=== PATIENT | male | born 1940 | race Caucasian/White ===

== ENCOUNTER 2016-05-19 01:29 | Emergency (ER) | payer OTHER, BC ==
[~2016-05-19] VITALS: Ht 175.3 cm; Wt 82.6 kg
[~2016-05-19 01:29] MED LIST: ACETAMINOPHEN325 M1 PO; ALEVE220 MG PO; ALPRAZOLAM0.25 MG PO; ALPRAZOLAM0.5 MG PO; ALTACE10 MG PO; AMLODIPINE BESY10 MG PO; ANTIVERT25 MG PO; ASPIRIN E.C.81 M1 PO; AVELOX400 MG PO; Antivert PO; CALCIUM 600 MG1 EACH PO; CILOSTAZOL100 MG PO; Cordarone, Pacerone PO; DILAUDID2 MG PO; ENBREL50 MG/ML PO; FOLIC ACID; FOLIC ACID1 MG PO; Folvite PO; GLUCOPHAGE XR,500 MG PO; GLUCOPHAGE1000 MG PO; GLUCOPHAGE500 MG PO; HABITROL,NICODE21 MG TD; HEPARIN SO5000 UNITS SC; HYDROXYCHLOROQ200 MG PO; ICaps Multivitamin F PO; LEVAQUIN500 MG PO; LOPRESSOR12.5 MG PO; LOPRESSOR25 MG PO; Lopressor PO; METFORMIN HCL500 MG PO; METHOTREXATE2.5 MG PO; METOPROLOL SUCC25 MG PO; NEXIUM40 MG PO; NIASPAN,SLO-NI500 MG PO; NIASPAN500 MG PO; NORVASC5 MG PO; Norvasc PO; Oyst-Cal D, Oscal W/ PO; PERCOCET 5/31 TABLET PO; PLAVIX75 MG PO; PRAVACHOL40 MG PO; PRAVASTATIN SOD40 MG PO; PREDNISONE5 MG PO; PROTONIX40 MG PO; RAMIPRIL10 MG PO; THIAMINE,VITAM100 MG PO; TRENTAL400 MG PO; TRENtal PO; TYLENOL WITH C1 EACH PO; Trental PO; VALIUM2 MG PO; VALIUM5 MG PO; VITAMIN B-12250 MCG PO; VITAMIN B12; VITAMIN B12-FO1 EACH PO; VITAMIN D31000 UNI2 PO; Vitamin B-12 PO; Xanax PO; Zocor PO; [UNRECOGNIZED DRUG - OTHER] PO; [UNRECOGNIZED DRUG - OTHER] PO; predniSONE PO
[2016-05-19 02:20] LABS: HEMATOCRIT 35.1 % (38.0-50.0); MCHC 32.2 G/DL (30.0-36.0); MCV 86.9 FL (86-99); MEAN PLAT.VOLUME 10.9 uM^3 (9.0-12.4); PLATELET COUNT 218 K/uL (156-360); RBC DIS.WIDTH-CV 18.3 % (11.8-14.6); RBC DIS.WIDTH-SD 57.4 % (39-53); RED BLOOD COUNT 4.04 M/uL (4.00-5.50); WHITE BLOOD COUNT 8.7 K/uL (4.1-10.2)
[2016-05-19 02:34] LABS: CHLORIDE 105 mEq/L (99-109); POTASSIUM 3.4 mEq/L (3.7-5.4); SODIUM 139 mEq/L (136-147)
[2016-05-19 02:35] LABS: GLUCOSE 167 mg/dL (70-99)
[2016-05-19 02:37] LABS: ANION GAP 18 MEQ/L (2-14)
[2016-05-19 02:40] LABS: GFR ESTIMATE (CALCULATED) > 59 mL/min/; UREA NITROGEN (BUN) 11 mg/dL (9-23)
[2016-05-19 02:41] LABS: TROP-I INTERPRETATION NEGATIVE; TROPONIN-I < 0.01 ng/mL (0.0-0.30)
[2016-05-19 04:35] LABS: TROP-I INTERPRETATION NEGATIVE; TROPONIN-I 0.01 ng/mL (0.0-0.30)
[2016-05-19 05:10] VITALS: BP 135/54
== END 2016-05-19 05:10 | disposition home or self-care (01) ==
LOC: EME → EDBD 01:29 → EME 05:10
PROVIDERS: Emergency Medicine
DX: R07.9 Chest pain, unspecified (principal); F43.9 Reaction to severe stress, unspecified; I10 Essential (primary) hypertension; E78.5 Hyperlipidemia, unspecified; I25.2 Old myocardial infarction; Z95.1 Presence of aortocoronary bypass graft; Z95.5 Presence of coronary angioplasty implant and graft; Z86.73 Personal history of transient ischemic attack (TIA), and cerebral infarction without residual deficits; Z88.0 Allergy status to penicillin
CPT/HCPCS: 71010; 80048; 84484; 85027; 93005; 99281; 99284; J2060; J7040

== ENCOUNTER → 2016-11-26 | Outpatient (CLI) | payer MEDICARE, BC | END | disposition home or self-care (01) | LOC: CDC 10:26 | DX: R94.31 Abnormal electrocardiogram [ECG] [EKG] (principal) | CPT/HCPCS: 93000 ==

== ENCOUNTER 2016-12-18 13:54 | Emergency (ER) | payer OTHER, BC ==
[2016-12-18 14:08] LABS: BASOPHIL COUNT 0.1 K/uL (0-0.1); EOSINOPHIL (%) 3.8 % (0-5); EOSINOPHIL COUNT 0.3 K/uL (0-0.3); IMMATURE GRANULOCYTE (%) 0.3 % (0.0-0.7); INSTRUMENT ABS NEUTROPHIL CT 4.8 K/uL; LYMPHOCYTE COUNT 1.2 K/uL (1.0-2.8); MCH 28.6 PG (29.0-34.0); MCHC 32.9 G/DL (30.0-36.0); MCV 86.7 FL (86-99); MEAN PLAT.VOLUME 11.8 uM^3 (9.0-12.4); MONOCYTE (%) 8.4 % (3-12); MONOCYTE COUNT 0.6 K/uL (0-0.8); NEUTROPHIL (%) 69.1 % (45-76); NEUTROPHIL COUNT 4.8 K/uL (1.8-6.4); PLATELET COUNT 235 K/uL (156-360); RBC DIS.WIDTH-CV 17.8 % (11.8-14.6); RED BLOOD COUNT 3.92 M/uL (4.00-5.50); WHITE BLOOD COUNT 6.9 K/uL (4.1-10.2)
[2016-12-18 14:19] LABS: AMYLASE 75 IU/L (1-118); CHLORIDE 105 mEq/L (99-109); POTASSIUM 4.1 mEq/L (3.7-5.4); SODIUM 137 mEq/L (136-147)
[2016-12-18 14:21] LABS: GLUCOSE 144 mg/dL (70-99)
[2016-12-18 14:22] LABS: ANION GAP 11 MEQ/L (2-14)
[2016-12-18 14:24] LABS: SERUM ETHYL ALCOHOL < 10 mg/dL
[2016-12-18 14:25] LABS: GFR ESTIMATE (CALCULATED) > 59 mL/min/
[2016-12-18 14:26] LABS: UREA NITROGEN (BUN) 15 mg/dL (9-23)
[2016-12-18 14:28] LABS: LIPASE 15 U/L (1.0-51.0)
[2016-12-18 16:44] LABS: ADD MIUA? NO; BILIRUBIN NEGATIVE; BLOOD NEGATIVE; COLOR STRAW ((YELLOW)); GLUCOSE (STRIP) NEGATIVE; KETONES NEGATIVE; LEUKOCYTES NEGATIVE; NITRITE NEGATIVE; PROTEIN (STRIP) NEGATIVE; SPECIFIC GRAVITY 1.014 (1.000-1.030); UCUL ADDED? NO; UROBILINOGEN 0.2 MG/DL (0.2-1.0)
[2016-12-18 16:55] LABS: ADD MEDTOX COMMENT Y; AMPHETAMINE NEGATIVE (500 ng/mL); BARBITURATES NEGATIVE (200 ng/mL); BENZODIAZEPINES PRESUMPTIVE POSITIVE (150 ng/mL); COCAINE NEGATIVE (150 ng/mL); INTERNAL CONTROLS VALID? YES; METHADONE NEGATIVE (200 ng/mL); METHAMPHETAMINE NEGATIVE (500 ng/mL); OPIATES (MORPHINE) PRESUMPTIVE POSITIVE (100 ng/mL); OXYCODONE NEGATIVE (100 ng/mL); PHENCYCLIDINE NEGATIVE (25 ng/mL); PROPOXYPHENE NEGATIVE (300 ng/mL); THC CANNABINOIDS NEGATIVE (50 ng/mL); TRICYCLIC ANTIDEPRESSANTS NEGATIVE (300 ng/mL)
[2016-12-18 17:37] LABS: BENZODIAZEPINES QUANT VALUE 0 NG/ML; BENZODIAZEPINES, URINE SCREEN Negative (200 ng/mL)
== END 2016-12-18 17:50 | disposition home or self-care (01) ==
LOC: TRA 13:54
PROVIDERS: Emergency Medicine
DX: M54.5 Low back pain (principal); M54.2 Cervicalgia; R42 Dizziness and giddiness; V49.40XA Driver injured in collision with unspecified motor vehicles in traffic accident, initial encounter; I25.2 Old myocardial infarction; Z79.82 Long term (current) use of aspirin; Z96.641 Presence of right artificial hip joint; Z95.5 Presence of coronary angioplasty implant and graft
CPT/HCPCS: 70450; 71260; 72125; 72132; 74177; 80048; 81003; 82150; 83690; 84999; 85025; 86900; 86901; 93005; 99281; 99285; G0480; J2270

== ENCOUNTER 2017-04-18 14:29 | Observation (INO) | payer OTHER, BC ==
[~2017-04-18] VITALS: Ht 175.3 cm; Wt 78.4 kg
[~2017-04-18 14:29] MED LIST changes: +AMARYL1 MG PO; +NIACIN500 M1 PO; +PROAIR HFA8.5 GM IH; +TOPROL XL50 MG PO; -VITAMIN B-12250 MCG PO
[2017-04-18 15:00] LABS: HEMATOCRIT 34.1 % (38.0-50.0); MCH 28.6 PG (29.0-34.0); MCHC 32.6 G/DL (30.0-36.0); MCV 87.9 FL (86-99); MEAN PLAT.VOLUME 10.8 uM^3 (9.0-12.4); PLATELET COUNT 225 K/uL (156-360); RBC DIS.WIDTH-CV 18.5 % (11.8-14.6); RBC DIS.WIDTH-SD 59.2 % (39-53); RED BLOOD COUNT 3.88 M/uL (4.00-5.50)
[2017-04-18 15:09] LABS: CHLORIDE 104 mEq/L (99-109); POTASSIUM 4.7 mEq/L (3.7-5.4); SODIUM 141 mEq/L (136-147)
[2017-04-18 15:10] LABS: INTER. NORMALIZED RATIO 1.1; PROTHROMBIN TIME 12.8 SEC (10.2-12.9)
[2017-04-18 15:11] LABS: GLUCOSE 113 mg/dL (70-99)
[2017-04-18 15:12] LABS: ANION GAP 11 MEQ/L (2-14); PTT 28.5 SEC (25-37)
[2017-04-18 15:13] LABS: TOTAL BILIRUBIN 0.4 mg/dL (0.0-1.0)
[2017-04-18 15:15] LABS: ALKALINE PHOSPHATASE 62 IU/L (3-129); GFR ESTIMATE (CALCULATED) > 59 mL/min/
[2017-04-18 15:16] LABS: UREA NITROGEN (BUN) 14 mg/dL (9-23)
[2017-04-18 15:20] LABS: TROP-I INTERPRETATION NEGATIVE; TROPONIN-I < 0.01 ng/mL (0.0-0.30)
[2017-04-18 20:59] LABS: TROP-I INTERPRETATION NEGATIVE; TROPONIN-I < 0.01 ng/mL (0.0-0.30)
[2017-04-18] MEDS ORDERED: LOPRESSOR25 MG PO (22:05)
[2017-04-18] MEDS ORDERED: RAMIPRIL10 MG PO (22:08)
[2017-04-18] MEDS ORDERED: VITAMIN B12 100MCG PO (22:22)
[2017-04-19 00:24] VITALS: BP 142/69
[2017-04-19 03:03] LABS: TROP-I INTERPRETATION NEGATIVE; TROPONIN-I < 0.01 ng/mL (0.0-0.30)
[2017-04-19 03:55] VITALS: BP 106/57
[2017-04-19 05:01] LABS: HDL CHOLESTEROL 38 MG/DL (Desirable>=40); LDL CHOLESTEROL 40 mg/dL (Desirable<100); NON-HDL CHOLESTEROL 60 mg/dL (Desirable<160); TOTAL CHOLESTEROL 98 mg/dL (Desirable<200); TRIGLYCERIDES 101 MG/DL (Normal: <150)
[2017-04-19 09:16] LABS: TROP-I INTERPRETATION NEGATIVE; TROPONIN-I < 0.01 ng/mL (0.0-0.30)
[2017-04-19 10:26] VITALS: BP 125/59
[2017-04-19 11:36] VITALS: BP 124/72
[2017-04-19] MEDS ORDERED: NITROSTAT0.4 MG SL (12:17)
[2017-04-19 12:30] LABS: POINT-OF-CARE METER ID UU14162513
== END 2017-04-19 14:31 | disposition home or self-care (01) ==
LOC: EME 14:29 → EDOF 19:45 → ENRESERV 19:48 → CANRESERV 19:56 → ENRESERV 19:56 → 5WEST 04-19 → ENPENDDIS 04-19 12:22 → 5WEST 04-19 14:31
PROVIDERS: Hospitalist; Physician Assistant
DX: R07.9 Chest pain, unspecified (principal); E11.51 Type 2 diabetes mellitus with diabetic peripheral angiopathy without gangrene; I10 Essential (primary) hypertension; I25.10 Atherosclerotic heart disease of native coronary artery without angina pectoris; I71.4 Abdominal aortic aneurysm, without rupture; M06.9 Rheumatoid arthritis, unspecified; Z95.1 Presence of aortocoronary bypass graft; Z95.5 Presence of coronary angioplasty implant and graft; I25.2 Old myocardial infarction; I65.29 Occlusion and stenosis of unspecified carotid artery; H35.30 Unspecified macular degeneration; J44.9 Chronic obstructive pulmonary disease, unspecified; Z86.73 Personal history of transient ischemic attack (TIA), and cerebral infarction without residual deficits; M81.0 Age-related osteoporosis without current pathological fracture; R42 Dizziness and giddiness; I47.1 Supraventricular tachycardia; E78.5 Hyperlipidemia, unspecified; F17.210 Nicotine dependence, cigarettes, uncomplicated; Z85.828 Personal history of other malignant neoplasm of skin; Z82.49 Family history of ischemic heart disease and other diseases of the circulatory system; Z80.0 Family history of malignant neoplasm of digestive organs; Z88.0 Allergy status to penicillin; Z79.84 Long term (current) use of oral hypoglycemic drugs; Z79.02 Long term (current) use of antithrombotics/antiplatelets
CPT/HCPCS: 71020; 80053; 80061; 82948; 84484; 85027; 85610; 85730; 93005; 99281; 99284; G0378; J1650; J8610

== ENCOUNTER 2017-05-08 09:35 | Day surgery (SDC) | payer OTHER, BC ==
[~2017-05-08] VITALS: Ht 175.3 cm; Wt 78.0 kg
[~2017-05-08 09:35] MED LIST changes: +ALEVE220 M2 PO; +ASPIRIN81 M2 PO; +NITROSTAT0.4 MG SL; +VITAMIN B12 100MCG PO
[2017-05-08] MEDS ORDERED: VITAMIN E400 UNIT PO (10:46)
[2017-05-08] MEDS ORDERED: VITAMIN D31000 UNI2 PO (10:46)
[2017-05-08] MEDS ORDERED: CALCIUM600 M1 PO (10:48)
[2017-05-08 10:59] LABS: POINT-OF-CARE METER ID UU13113696
== END 2017-05-08 21:40 | disposition home or self-care (01) ==
LOC: CATH 09:35
PROVIDERS: Internal Medicine Cardiovascular Disease
DX: I25.119 Atherosclerotic heart disease of native coronary artery with unspecified angina pectoris (principal); I47.1 Supraventricular tachycardia; I47.2 Ventricular tachycardia; I10 Essential (primary) hypertension; I70.213 Atherosclerosis of native arteries of extremities with intermittent claudication, bilateral legs; J44.9 Chronic obstructive pulmonary disease, unspecified; E78.5 Hyperlipidemia, unspecified; E11.9 Type 2 diabetes mellitus without complications; I25.2 Old myocardial infarction; Z95.1 Presence of aortocoronary bypass graft; Z79.84 Long term (current) use of oral hypoglycemic drugs; Z95.5 Presence of coronary angioplasty implant and graft; Z79.82 Long term (current) use of aspirin
CPT/HCPCS: 82948; 85347; C1769; C1887; C1894; J1644; J2250; J3010

== ENCOUNTER → 2017-05-23 | Outpatient (CLI) | payer MEDICARE, BC ==
[~2017-05-23] MED LIST changes: +CALCIUM600 M1 PO; +VITAMIN E400 UNIT PO
== END | disposition home or self-care (01) ==
LOC: CDC 08:29
DX: Z01.810 Encounter for preprocedural cardiovascular examination (principal); R94.31 Abnormal electrocardiogram [ECG] [EKG]
CPT/HCPCS: 93000

== ENCOUNTER 2017-08-12 12:14 | Emergency (ER) | payer OTHER, BC ==
[~2017-08-12] VITALS: Ht 175.3 cm; Wt 77.2 kg
[2017-08-12] MEDS ORDERED: TRAMADOL HCL50 MG PO (15:16)
[2017-08-12] MEDS ORDERED: VOLTAREN 1% GE100 GM TP (15:16)
[2017-08-12] MEDS ORDERED: LIDODERM 5% P1 PATCH TD (15:16)
[2017-08-12 15:28] VITALS: BP 168/82
== END 2017-08-12 15:32 | disposition home or self-care (01) ==
LOC: EME 12:14
DX: S46.911A Strain of unspecified muscle, fascia and tendon at shoulder and upper arm level, right arm, initial encounter (principal); M25.521 Pain in right elbow; V48.0XXA Car driver injured in noncollision transport accident in nontraffic accident, initial encounter; Y92.411 Interstate highway as the place of occurrence of the external cause; E11.9 Type 2 diabetes mellitus without complications; Z79.84 Long term (current) use of oral hypoglycemic drugs; E78.5 Hyperlipidemia, unspecified; I25.2 Old myocardial infarction; Z95.1 Presence of aortocoronary bypass graft; Z86.73 Personal history of transient ischemic attack (TIA), and cerebral infarction without residual deficits; M06.9 Rheumatoid arthritis, unspecified; I50.9 Heart failure, unspecified; Z79.82 Long term (current) use of aspirin; Z88.0 Allergy status to penicillin; F17.200 Nicotine dependence, unspecified, uncomplicated; Z71.6 Tobacco abuse counseling
CPT/HCPCS: 73080; 99281; 99284

== ENCOUNTER 2017-10-28 15:04 | Observation (INO) | payer OTHER, BC ==
[~2017-10-28] VITALS: Ht 175.3 cm; Wt 74.0 kg
[~2017-10-28 15:04] MED LIST changes: +LIDODERM 5% P1 PATCH TD; +TRAMADOL HCL50 MG PO; +VOLTAREN 1% GE100 GM TP
[2017-10-28 17:06] LABS: BASOPHIL (%) 1.1 % (0-1); BASOPHIL COUNT 0.1 K/uL (0-0.1); EOSINOPHIL (%) 2.9 % (0-5); EOSINOPHIL COUNT 0.2 K/uL (0-0.3); HEMATOCRIT 34.8 % (38.0-50.0); HEMOGLOBIN 11.2 G/DL (12.5-16.6); IMMATURE GRANULOCYTE (%) 0.1 % (0.0-0.7); LYMPHOCYTE (%) 14.7 % (15-42); LYMPHOCYTE COUNT 1.2 K/uL (1.0-2.8); MCH 28.3 PG (29.0-34.0); MCHC 32.2 G/DL (30.0-36.0); MCV 87.9 FL (86-99); MONOCYTE (%) 7.2 % (3-12); MONOCYTE COUNT 0.6 K/uL (0-0.8); NEUTROPHIL COUNT 5.8 K/uL (1.8-6.4); PLATELET COUNT 249 K/uL (156-360); RBC DIS.WIDTH-CV 18.4 % (11.8-14.6); RBC DIS.WIDTH-SD 58.8 % (39-53); RED BLOOD COUNT 3.96 M/uL (4.00-5.50); WHITE BLOOD COUNT 7.9 K/uL (4.1-10.2)
[2017-10-28 17:16] LABS: CHLORIDE 106 mEq/L (99-109); POTASSIUM 4.7 mEq/L (3.7-5.4); SODIUM 142 mEq/L (136-147)
[2017-10-28 17:18] LABS: GLUCOSE 152 mg/dL (70-99)
[2017-10-28 17:22] LABS: CREATININE 0.8 mg/dL (0.6-1.3); GFR ESTIMATE (CALCULATED) > 59 mL/min/ (58.99-99999)
[2017-10-28 17:23] LABS: UREA NITROGEN (BUN) 14 mg/dL (9-23)
[2017-10-28] MEDS ORDERED: PRESERVISION A1 EAC2 PO (18:25)
[2017-10-28] MEDS ORDERED: PLAVIX75 MG PO (18:26)
[2017-10-28] MEDS ORDERED: IMDUR30 MG PO (18:27)
[2017-10-28] MEDS ORDERED: CILOSTAZOL100 MG PO (18:27)
[2017-10-28] MEDS ORDERED: NIFEDIPINE ER30 MG PO (18:27)
[2017-10-28] MEDS ORDERED: ANTIVERT25 MG PO (18:28)
[2017-10-28 18:31] VITALS: BP 146/87
[2017-10-28] MEDS ORDERED: NORVASC10 MG PO (18:33)
[2017-10-28] MEDS ORDERED: ONE DAILY1 EAC3 PO (18:33)
[2017-10-28] MEDS ORDERED: PLAQUENIL200 MG PO (18:34)
[2017-10-28 18:37] LABS: HDL CHOLESTEROL 29 MG/DL (Desirable>=40); LDL CHOLESTEROL 63 mg/dL (Desirable<100); NON-HDL CHOLESTEROL 113 mg/dL (Desirable<160); TOTAL CHOLESTEROL 142 mg/dL (Desirable<200); TRIGLYCERIDES 250 MG/DL (Normal: <150)
[2017-10-28 22:59] VITALS: BP 110/64
[2017-10-29] VITALS (9 sets, daily range): BP systolic 108–184; BP diastolic 53–82
[2017-10-29 05:33] LABS: HEMATOCRIT 32.8 % (38.0-50.0); HEMOGLOBIN 10.4 G/DL (12.5-16.6); MCHC 31.7 G/DL (30.0-36.0); MCV 88.2 FL (86-99); PLATELET COUNT 210 K/uL (156-360); RBC DIS.WIDTH-CV 18.5 % (11.8-14.6); RBC DIS.WIDTH-SD 59.2 % (39-53); RED BLOOD COUNT 3.72 M/uL (4.00-5.50); WHITE BLOOD COUNT 6.6 K/uL (4.1-10.2)
[2017-10-29 09:01] LABS: HEMOGLOBIN A1c (GLYCOHEMOGLOB) 6.9 % (Below 5.7)
[2017-10-29] MEDS ORDERED: ANTIVERT25 MG PO (13:47)
[2017-10-29 20:28] LABS: TROP-I INTERPRETATION NEGATIVE; TROPONIN-I < 0.01 ng/mL (0.0-0.30)
[2017-10-30 03:46] VITALS: BP 127/74
[2017-10-30 06:00] LABS: HEMOGLOBIN 10.7 G/DL (12.5-16.6); MCH 27.9 PG (29.0-34.0); MCHC 31.5 G/DL (30.0-36.0); MCV 88.8 FL (86-99); PLATELET COUNT 202 K/uL (156-360); RBC DIS.WIDTH-CV 18.3 % (11.8-14.6); RBC DIS.WIDTH-SD 58.9 % (39-53); RED BLOOD COUNT 3.83 M/uL (4.00-5.50)
[2017-10-30 07:15] VITALS: BP 129/59
[2017-10-30 11:03] VITALS: BP 138/66
== END 2017-10-30 15:02 | disposition home or self-care (01) ==
LOC: EME 15:04 → 5SOUTH 16:49 → EDOF 16:49 → 5SOUTH 16:49 → ENRESERV 16:50 → 5SOUTH 18:15
PROVIDERS: Emergency Medicine; Hospitalist; Physician Assistant Medical
DX: R42 Dizziness and giddiness (principal); R53.1 Weakness; I65.23 Occlusion and stenosis of bilateral carotid arteries; I25.10 Atherosclerotic heart disease of native coronary artery without angina pectoris; Z95.1 Presence of aortocoronary bypass graft; Z95.5 Presence of coronary angioplasty implant and graft; I10 Essential (primary) hypertension; E11.9 Type 2 diabetes mellitus without complications; I71.4 Abdominal aortic aneurysm, without rupture; W22.8XXA Striking against or struck by other objects, initial encounter; Y93.89 Activity, other specified; Y92.238 Other place in hospital as the place of occurrence of the external cause; Z86.73 Personal history of transient ischemic attack (TIA), and cerebral infarction without residual deficits; M06.9 Rheumatoid arthritis, unspecified; Z96.659 Presence of unspecified artificial knee joint; Z96.649 Presence of unspecified artificial hip joint; Z96.629 Presence of unspecified artificial elbow joint; F17.200 Nicotine dependence, unspecified, uncomplicated; Z88.0 Allergy status to penicillin; Z79.82 Long term (current) use of aspirin; Z79.899 Other long term (current) drug therapy
CPT/HCPCS: 70450; 70551; 71045; 72125; 80048; 80061; 82948; 83036; 84484; 85025; 85027; 93005; 93880; 99281; 99285; G0378; G8987 GO CI; G8991 CH; J1170; J1644; J1815; J2405; S0028

== ENCOUNTER → 2017-12-26 | Outpatient (CLI) | payer MEDICARE, BC ==
[~2017-12-26] MED LIST changes: +IMDUR30 MG PO; +NIFEDIPINE ER30 MG PO; +NORVASC10 MG PO; +ONE DAILY1 EAC3 PO; +PLAQUENIL200 MG PO; +PRESERVISION A1 EAC2 PO
== END | disposition home or self-care (01) ==
LOC: CDC 11:28
DX: Z01.810 Encounter for preprocedural cardiovascular examination (principal); I70.25 Atherosclerosis of native arteries of other extremities with ulceration; I45.4 Nonspecific intraventricular block; R94.31 Abnormal electrocardiogram [ECG] [EKG]
CPT/HCPCS: 93000